=== PATIENT | female | born 1960 | race Caucasian/White ===

== ENCOUNTER 2016-09-15 11:55 | Inpatient (IN) | payer OTHER ==
[~2016-09-15] VITALS: Ht 170.2 cm; Wt 95.4 kg
--- NOTE | 2016-09-18 09:54 | NUR ---
Received SAD person referral. Pt was dc prior to SWS seeing pt. SWS contact pt. States she tried to harm self "years ago." Denies current thoughts of self harm and denies a plan.
[2016-09-18] MEDS ORDERED: CARVEDILOL3.125 MG PO (10:25)
[2016-09-18] MEDS ORDERED: HYZAAR 100-12.1 EACH PO (10:25)
[2016-09-18] MEDS ORDERED: HCTZ12.5 MG PO (10:26)
[2016-09-18] MEDS ORDERED: KLOR-CON M2020 ME1 PO (10:26)
[2016-09-18] MEDS ORDERED: ELIQUIS5 MG PO (10:27)
--- NOTE | 2016-09-26 09:41 | ER ---
ADMIT: 09/15/2016 RM/LOC: 633 [facility] MR#: [id number] [address] BRITTANY PRATHER [address] [place] [address] Emergency Room Report SEX: F AGE: 56 : 1960 DATE: 09/15/2016 ADDENDUM: CHIEF COMPLAINT: Cough and hemoptysis. HISTORY OF PRESENT ILLNESS: This is a 56-year-old who started having upper respiratory symptoms about 4-5 days ago. She was seen at [facility], started on prednisone and clarithromycin. Today, she was coughing up blood, became concerned, so came to the ER. CBC is normal with a white count of 7.1 and hemoglobin of 12.9. CMP is normal except for glucose of [address] of her chest did show peripheral small bilateral PEs. Dr. Hearn was called regarding this patient, we will admit for the bilateral PEs. Started her on Lovenox here in the emergency room. CLINICAL IMPRESSION: Bilateral pulmonary embolism. ERIS Thomason / Alfred Francis MD / alisha JOB #: [id number] CC: Froilan Clancy MD, Attending Physician Froilan Clancy MD, Family Physician
--- NOTE | 2016-10-04 12:51 | DS ---
ADMIT: 09/15/2016 RM/LOC: 633 [facility] MR#: [id number] [address] BRITTANY PRATHER Chris [address] [place] [id number] General Discharge Summary SEX: F AGE: 56 : 1960 ADMISSION DATE: 09/15/2016 DISCHARGE DATE: 09/17/2016 ADMISSION DIAGNOSIS: Subsegmental pulmonary emboli. DISCHARGE DIAGNOSIS: Subsegmental pulmonary emboli. SECONDARY DIAGNOSES: 1. Deep vein thrombosis, right lower extremity. 2. Hypertension. 3. Metapneumovirus. CONSULTATIONS: None. PROCEDURES: None. HISTORY OF PRESENT ILLNESS: The patient presented to the emergency room with a 2-week history of productive cough with onset of rust-colored sputum. She had previously been seen at Urgent Care and given a course of prednisone and clarithromycin for walking pneumonia. She reported that she never really felt ill with these symptoms, never having fevers or feeling short of breath, but was noticed to have color change of her sputum. She had a CT scan in the emergency room which showed bilateral subsegmental pulmonary emboli and was admitted for that reason. HOSPITAL COURSE: The patient was started on Lovenox 1 mg/kg twice a day for anticoagulation. She was hemodynamically stable and not hypoxic throughout the hospitalization. Respiratory viral panel was completed and positive for human metapneumovirus thought to likely be the cause of the cough as the clot burden was minimal. The patient was transitioned to Eliquis 10 mg p.o. b.i.d. on hospital day #2. She had a 12-lead EKG completed during her stay as when she was plugged into telemetry, there was concern for ST elevation, however, it was not seen on EKG. Of note, she does have a left bundle branch block. On hospital day #3, the patient was deemed to be stable on Eliquis and in agreement with discharge. DISCHARGE MEDICATIONS: 1. Coreg 3.125 mg p.o. b.i.d. 2. Cozaar 100 mg p.o. daily. ADMIT: 09/15/2016 RM/LOC: 633 [facility] MR#: [id number] [address] BRITTANY PRATHER [address] [place] [address] General Discharge Summary SEX: F AGE: 56 : 1960 3. Eliquis 10 mg p.o. b.i.d. for 7 days and then 5 mg b.i.d. 4. Hydrochlorothiazide 25 mg p.o. b.i.d. 5. Tylenol 650 mg p.o. q.4 hours p.r.n. pain. 6. Potassium chloride 20 mEq daily p.o. CONDITION ON DISCHARGE: Stable. DISPOSITION: Home. FOLLOWUP: Follow up with Dr. Clancy in 10 to [address] Steve in 3-4 weeks for possible hypercoagulable workup as the patient has a family history of blood clots. Merna Rodriguez MD Resident / Froilan Clancy MD / sunill JOB #: [id number] CC: Froilan Clancy MD, Attending Physician Froilan Clancy MD, Family Physician
--- NOTE | 2016-10-14 16:24 | HP ---
ADMIT: 09/15/2016 RM/LOC: 633 [facility] MR#: [id number] [address] YAMILKA BRITTANY A [address] [place] [id number] History and Physical SEX: F AGE: 56 : 1960 DATE OF SERVICE: CHIEF COMPLAINT: Hemoptysis. HISTORY OF CHIEF COMPLAINT: The patient reports a 2-week history of productive cough, but today had a dime-sized, rust-colored sputum prompting presentation to the emergency room. She reports that she was seen in urgent care earlier this week and was given a course of prednisone and clarithromycin for walking pneumonia. She reports that she has never truly felt ill and that she has never had fevers and is not feeling short of breath, has also not noticed much improvement in her symptoms with the treatment. Today, she was worried when she saw the rust-colored sputum which prompted her presentation. She had a CT of the chest in the ER, which showed bilateral subsegmental possible pulmonary emboli and for this she will be admitted. She does report family history of blood clots in both her mother and father having clots, and she is unsure of the etiology. She denies any fever, chills, chest pain, shortness of breath, presyncope, syncope, nausea, vomiting, diarrhea, or edema. She is hemodynamically stable in fact with normal vital signs at presentation. PAST MEDICAL HISTORY: 1. Hypertension. 2. History of drug abuse. 3. Latent TB with partial treatment. 4. Hepatitis C, status post treatment. PAST SURGICAL HISTORY: 1. Hysterectomy. 2. Cholecystectomy. 3. Hernia. MEDICATIONS: 1. Hydrochlorothiazide. 2. Secondary antihypertensive that she is unsure of the name. 3. Potassium chloride. 4. Prednisone. 5. Clarithromycin. ALLERGIES: NO KNOWN MEDICAL ALLERGIES. FAMILY HISTORY: Mother and father with blood clots of unknown etiology. The patient described that her mother had a bleeding and clotting disorder and was seen by Dr. Steve for that. REVIEW OF SYSTEMS: A 10-point review of systems is negative except as noted in the HPI. PHYSICAL EXAMINATION: VITAL SIGNS: Blood pressure 134/64, pulse 65, respiratory rate 20, SpO2 97%, temperature 99.0 Fahrenheit. ADMIT: 09/15/2016 RM/LOC: 633 [facility] MR#: [id number] [address] BRITTANY PRATHER Chris [address] [place] [address] History and Physical SEX: F AGE: 56 : 1960 GENERAL: The patient is awake, alert, oriented, lying in bed, in no acute distress. HEENT: Head is normocephalic and atraumatic. Pupils are equal, round, and reactive to light. Extraocular muscles intact. Mucous membranes are moist. Facial tattoos are noted. LUNGS: Clear to auscultation though with minimal rhonchi. HEART: Regular rate and rhythm without murmur. ABDOMEN: Soft, nontender to palpation. Bowel sounds are present. EXTREMITIES: Without edema or tenderness to palpation. PSYCH: Normal mood and affect. NEURO: Grossly intact. LABORATORY DATA: WBC 7.1, hemoglobin 12.9, platelets 246, creatinine 0.8. CT of the chest with possible bilateral subsegmental pulmonary emboli. ASSESSMENT: 1. Cough with sputum production. 2. Possible subsegmental pulmonary emboli. 3. Hypertension. PLAN: The patient was given a first dose of therapeutic Lovenox in the emergency room and that will be continued with 1 mg/kg every 12 hours. We will order a venous ultrasound of her bilateral lower extremities to check for deep vein thrombosis. We will attempt to obtain her mother's medical record as she was seen for a clotting disorder in the past. At this time, we will monitor the patient's respiratory symptoms. We will make DuoNebs available as needed, but will discontinue the previous prednisone and clarithromycin as the patient did not feel it was effective. She should be on a general diet and activity as tolerated. Merna Rodriguez MD Resident / Jairon Hearn MD / alisha JOB #: [id number] CC: Froilan Clancy, Attending Physician Froilan Clancy, Family Physician
== END 2016-09-17 09:40 | disposition home or self-care (01) | DRG 175 ==
LOC: ER 11:55 → 6PED 15:30
PROVIDERS: ADMIT Family Medicine
DX: I26.99 Other pulmonary embolism without acute cor pulmonale (principal); J12.3 Human metapneumovirus pneumonia; I82.431 Acute embolism and thrombosis of right popliteal vein; I82.411 Acute embolism and thrombosis of right femoral vein; I10 Essential (primary) hypertension; Z86.11 Personal history of tuberculosis; Z86.19 Personal history of other infectious and parasitic diseases; Z87.891 Personal history of nicotine dependence